=== PATIENT | female | born 1990 | race Caucasian/White ===

== ENCOUNTER 2016-08-29 01:44 | Emergency (ER) | payer MEDICAID ==
[~2016-08-29] VITALS: Ht 162.6 cm; Wt 90.9 kg
[~2016-08-29 01:44] MED LIST: AMOXI1255L PO; CLINL PO; METF500T4 PO; PREN-64 PO
[2016-08-29 02:17] LABS: GLUCOSE,POINT OF CARE 179 MG/DL (70-110)
[2016-08-29 08:05] VITALS: BP 131/85
== END 2016-08-29 08:08 | disposition home or self-care (01) ==
LOC: EMS 01:45
DX: S02.5XXA Fracture of tooth (traumatic), initial encounter for closed fracture (principal); S00.83XA Contusion of other part of head, initial encounter; W50.0XXA Accidental hit or strike by another person, initial encounter; Y93.89 Activity, other specified; Y92.9 Unspecified place or not applicable; Y99.9 Unspecified external cause status
CPT/HCPCS: 70140; 81025; 82962; 99284

== ENCOUNTER 2020-02-22 17:26 | Emergency (ER) | payer MEDICAID ==
[~2020-02-22] VITALS: Ht 162.6 cm; Wt 84.1 kg
[2020-02-22 19:55] LABS: BASOPHILS % (AUTO) 0.1 % (0.0-2.0); EOSINOPHILS % (AUTO) 0 % (1.0-6.0); HEMATOCRIT 41.2 % (36-46); HEMOGLOBIN 14.2 g/dL (12.0-16.0); LYMPHOCYTES # (AUTO) 0.4 K/uL (1.0-4.8); LYMPHOCYTES % (AUTO) 3.9 % (22.0-44.0); MEAN CORPUSCULAR HEMOGLOBIN 29.8 pg (26.0-34.0); MEAN CORPUSCULAR HGB CONC 34.4 G/dL (31.0-37.0); MEAN CORPUSCULAR VOLUME 87 fL (80-100); MONOCYTES # (AUTO) 1.2 K/uL (0.1-1.0); MONOCYTES % (AUTO) 12.7 % (2.0-9.0); NEUTROPHILS # (AUTO) 7.7 K/uL (1.8-7.7); NEUTROPHILS % (AUTO) 83.3 % (40.0-70.0); PLATELET COUNT (AUTO) 355 K/uL (150-450); RED BLOOD CELL COUNT(AUTO) 4.75 MIL/uL (4.00-5.20); RED CELL DISTRIBUTION WIDTH 12.9 % (11.5-14.5)
[2020-02-22 20:05] LABS: ANION GAP 12 mmol/L (8-16); CARBON DIOXIDE 25 mmol/L (22-29); CHLORIDE 98 mmol/L (98-107); GLOMERULAR FILTR. RATE CALC > 60 mL/min (>60); GLUCOSE,RANDOM 228 mg/dL (70-110); POTASSIUM 3.7 mmol/L (3.5-5.1); SODIUM SERUM 135 mmol/L (136-145); UREA NITROGEN, BLOOD 7 mg/dL (7-18)
[2020-02-22] MEDS ORDERED: SODIUM CHLORIDE 0.9% 1,000 ML IV ONE (20:15)
[2020-02-22] MEDS ORDERED: KETOROLAC TROMETHAMINE 30 MG/ML VIAL IVP ONE (20:15)
[2020-02-22] MEDS ORDERED: ACETAMINOPHEN 325 MG TABLET PO ONE (20:15)
[2020-02-22] MEDS ORDERED: ONDANSETRON HCL 4 MG/2 ML VIAL IVP ONE (20:15)
[2020-02-22 20:16] LABS: ALANINE AMINOTRANSFERASE 18 U/L (12-78); ALBUMIN 3.7 g/dL (3.4-5.0); ALKALINE PHOSPHATASE 71 U/L (46-116); ASPARTATE AMINOTRANSFERASE 14 U/L (15-37); BILIRUBIN,TOTAL 1.1 mg/dL (0.1-1.0); HCG,QUANTITATIVE 2 mIU/mL (0-6); LIPASE 41 U/L (73-393); TOTAL PROTEIN, SERUM 8.4 g/dL (6.4-8.2)
[2020-02-22 20:34] LABS: COVID AG,FIA SOURCE NASOPHARYNGEAL
[2020-02-22 21:06] LABS: INFLUENZA TYPE A NEGATIVE FOR TYPE A (NEGATIVE); INFLUENZA TYPE B NEGATIVE FOR TYPE B (NEGATIVE)
[2020-02-23 00:29] VITALS: BP 128/83
== END 2020-02-23 01:14 | disposition home or self-care (01) ==
LOC: EMS 17:28
DX: R19.7 Diarrhea, unspecified (principal); R51.9 Headache, unspecified; M79.10 Myalgia, unspecified site; Z20.828 Contact with and (suspected) exposure to other viral communicable diseases; Z90.89 Acquired absence of other organs
CPT/HCPCS: 36415; 80053; 83690; 84702; 85025; 87426; 87804; 96361; 96374; 96375; 99284; J1885; J2405; J7030; U0003

== ENCOUNTER 2020-08-17 15:26 | Emergency (ER) | payer MEDICAID ==
[~2020-08-17] VITALS: Ht 162.6 cm; Wt 75.0 kg
[2020-08-17 15:32] VITALS: BP 162/87
[2020-08-17 16:29] LABS: COVID AG,FIA SOURCE NASOPHARYNGEAL
== END 2020-08-17 16:40 | disposition home or self-care (01) ==
LOC: EMS 15:26
DX: Z20.822 Contact with and (suspected) exposure to COVID-19 (principal)
CPT/HCPCS: 87426; 99283; C9803; U0003

== ENCOUNTER 2021-05-20 10:28 | Emergency (ER) | payer MEDICAID ==
[~2021-05-20] VITALS: Ht 162.6 cm; Wt 63.6 kg
[2021-05-20] MEDS ORDERED: KETOROLAC TROMETHAMINE 60 MG/2 ML VIAL IM ONE (11:45)
[2021-05-20] MEDS ORDERED: CEPHALEXIN MONOHYDRATE 500 MG CAPSULE PO ONE (11:45)
[2021-05-20] MEDS ORDERED: PERTUSS(ACELL),DIPH,TET VAC/PF 0.5 ML SYRINGE IM. ONE (11:45)
[2021-05-20] MEDS ORDERED: BACITRACIN 0.9 GM PACKET OINTMENT TP ONE (11:45)
[2021-05-20] MEDS ORDERED: GABAPENTIN 300 MG CAPSULE PO ONE (11:45)
[2021-05-20 12:07] LABS: BASOPHILS % (AUTO) 0.3 % (0.0-2.0); HEMATOCRIT 36.9 % (36-46); HEMOGLOBIN 12.3 g/dL (12.0-16.0); LYMPHOCYTES # (AUTO) 1.8 K/uL (1.0-4.8); LYMPHOCYTES % (AUTO) 19.1 % (22.0-44.0); MEAN CORPUSCULAR HEMOGLOBIN 28.1 pg (26.0-34.0); MEAN CORPUSCULAR HGB CONC 33.2 G/dL (31.0-37.0); MEAN CORPUSCULAR VOLUME 85 fL (80-100); MONOCYTES # (AUTO) 0.6 K/uL (0.1-1.0); MONOCYTES % (AUTO) 6.3 % (2.0-9.0); NEUTROPHILS % (AUTO) 72.3 % (40.0-70.0); PLATELET COUNT (AUTO) 346 K/uL (150-450); RED BLOOD CELL COUNT(AUTO) 4.37 MIL/uL (4.00-5.20); RED CELL DISTRIBUTION WIDTH 13.3 % (11.5-14.5)
[2021-05-20 12:15] LABS: ANION GAP 6 mmol/L (8-16); CARBON DIOXIDE 30 mmol/L (22-29); CHLORIDE 102 mmol/L (98-107); CREATININE 0.53 mg/dL (0.60-1.30); GLOMERULAR FILTR. RATE CALC > 60 mL/min (>60); GLUCOSE,RANDOM 126 mg/dL (70-110); POTASSIUM 4.2 mmol/L (3.5-5.1); SODIUM SERUM 138 mmol/L (136-145); UREA NITROGEN, BLOOD 8 mg/dL (7-18)
[2021-05-20] MEDS ORDERED: SODIUM CHLORIDE 0.9% 100 ML ONE (12:15)
[2021-05-20] MEDS ORDERED: IOHEXOL 350 MG/ML 100 ML VIAL ONE (12:15)
[2021-05-20 12:21] LABS: ALANINE AMINOTRANSFERASE 11 U/L (12-78); ALBUMIN 3.6 g/dL (3.4-5.0); ALKALINE PHOSPHATASE 81 U/L (46-116); ASPARTATE AMINOTRANSFERASE 12 U/L (15-37); BILIRUBIN,TOTAL 0.4 mg/dL (0.1-1.0); C-REACTIVE PROTEIN QUANT 0.58 mg/dL (0.00-0.30); TOTAL PROTEIN, SERUM 7.8 g/dL (6.4-8.2)
[2021-05-20 12:33] LABS: URIC ACID 3.4 mg/dL (2.6-7.2)
[2021-05-20 13:15] LABS: ERYTHROCYTE SEDIMENTATION RATE 48 MM/HR (0-20)
[2021-05-20 13:54] VITALS: BP 134/70
[2021-05-20] MEDS ORDERED: DOXY-354 PO (14:07)
[2021-05-20] MEDS ORDERED: INDO-16 PO (14:07)
[2021-05-20] MEDS ORDERED: MUPI1OIN5 TP (14:12)
== END 2021-05-20 14:38 | disposition home or self-care (01) ==
LOC: EMS 10:31
DX: S61.210A Laceration without foreign body of right index finger without damage to nail, initial encounter (principal); L03.116 Cellulitis of left lower limb; W26.0XXA Contact with knife, initial encounter; Y93.89 Activity, other specified; Y92.89 Other specified places as the place of occurrence of the external cause; Y99.8 Other external cause status
CPT/HCPCS: 36415; 73701; 80053; 84550; 85025; 85651; 86140; 90471; 90715; 96372; 99285; J1885; J7050; Q9967

== ENCOUNTER 2021-07-15 20:08 | Emergency (ER) | payer MEDICAID ==
[~2021-07-15] VITALS: Ht 162.6 cm; Wt 81.8 kg
[~2021-07-15 20:08] MED LIST changes: -AMOXI1255L PO; -CLINL PO; +DOXY-354 PO; +INDO-16 PO; -METF500T4 PO; +MUPI1OIN5 TP; -PREN-64 PO
[2021-07-15] MEDS ORDERED: CYCL5TAB PO (20:23)
[2021-07-15] MEDS ORDERED: NAPR-1025 PO (20:23)
[2021-07-15] MEDS ORDERED: PERTUSS(ACELL),DIPH,TET VAC/PF 0.5 ML SYRINGE IM. ONE (22:15)
[2021-07-15] MEDS ORDERED: CYCLOBENZAPRINE HCL 10 MG TABLET PO ONE (23:15)
[2021-07-15 23:58] VITALS: BP 136/88
== END 2021-07-15 23:30 | disposition home or self-care (01) ==
LOC: EMS 20:12
DX: S01.01XA Laceration without foreign body of scalp, initial encounter (principal); Z87.09 Personal history of other diseases of the respiratory system; Z86.32 Personal history of gestational diabetes; Z90.49 Acquired absence of other specified parts of digestive tract; Z98.890 Other specified postprocedural states; Y08.89XA Assault by other specified means, initial encounter; Y93.89 Activity, other specified; Y92.89 Other specified places as the place of occurrence of the external cause; Y99.8 Other external cause status
CPT/HCPCS: 12002; 90471; 90715; 99283

== ENCOUNTER 2023-04-04 18:26 | Emergency (ER) | payer MEDICAID ==
[~2023-04-04] VITALS: Ht 162.6 cm; Wt 79.5 kg
[~2023-04-04 18:26] MED LIST changes: +CYCL5TAB PO; -DOXY-354 PO; -INDO-16 PO; -MUPI1OIN5 TP; +NAPR-1025 PO
[2023-04-04 18:59] VITALS: TEMP 98.7
[2023-04-04 20:53] VITALS: BP 119/67; PULSE 70; RESP 18
[2023-04-04] MEDS ORDERED: POVIDONE-IODINE 10% 120 ML SOLUTION TP ONE (21:45)
[2023-04-04] MEDS ORDERED: 0.9% SODIUM CHLORIDE 1000 ML IRRIG SOLUTION BOTTLE IRRIG ONE (21:45)
[2023-04-04] MEDS ORDERED: LIDOCAINE 1% 10 ML VIAL SQ ONE (21:45)
[2023-04-04] MEDS ORDERED: SULF-261 PO (23:12)
[2023-04-04] MEDS ORDERED: CIPROFLOXACIN HCL 250 MG TABLET PO ONE (23:15)
[2023-04-04] MEDS ORDERED: SULFAMETHOX/TRIMETH DS 800-160 MG/TABLET PO ONE (23:15)
== END 2023-04-04 22:30 | disposition home or self-care (01) ==
LOC: EMS 18:32
DX: H60.12 Cellulitis of left external ear (principal); Z90.49 Acquired absence of other specified parts of digestive tract; Z98.890 Other specified postprocedural states
CPT/HCPCS: 99284; J3490